=== PATIENT | female | born 1995 | race Caucasian/White ===

== ENCOUNTER 2021-05-08 13:41 | Emergency (ER) | payer MEDICAID ==
--- NOTE | 2021-05-08 13:55 | EDM.PDOC ---
ED HPI GENERAL MEDICAL PROBLEM - General Chief Complaint: Cardiovascular Problem Stated Complaint: CHEST PAIN Time Seen by Provider: 05/08/21 13:41 Source of Information: Reports: Patient History Limitations: Reports: No Limitations - History of Present Illness INITIAL COMMENTS - FREE TEXT/NARRATIVE: October, 25-year-old female, presents with chest wall discomfort that has been p resent since yesterday. She denies any recent illness. She was diagnosed with hyperthyroidism in the past months and is still undergoing further testing for that. She states that she is immunocompromised autoimmune diagnosis. She had Covid 19 last April 2020 and has since then received Michael [employer] Michael immunization she believes in October. She has had no symptoms of COVID-19 or concerns. She denies any other contributing factors with no recent illness no travel exposures. 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 Denies any bowel or bladder changes or in her daily function. Recently started propanolol again as she stated it been stopped secondary of her . States tachycardia has been since original diagnosis,2016. Feels that tachycardia was somewhat controlled with propanolol when taking it and that her headaches were slightly improved. Onset Date: 05/07/21 Duration: Day(s):, Constant Location: Reports: Chest Quality: Reports: Ache, Pressure Severity: Moderate Improves with: Reports: None Worsens with: Reports: Breathing, Movement Context: Reports: Activity Associated Symptoms: Reports: No Other Symptoms Bilateral Middle Chest Pain Score (Numeric/FACES): 5 - Related Data Allergies Allergy/AdvReac Type Severity Reaction Status Date / Time Penicillins Allergy Mild Rash Verified 05/08/21 13:43 Home Meds: Home Meds Escitalopram Oxalate [Lexapro] 5 mg PO DAILY 05/08/21 [History] Indomethacin 50 mg PO TID 10 Days #30 capsule 05/08/21 [Rx] LORazepam [Ativan] 0.5 mg PO ASDIRECTED PRN 05/08/21 [History] Propranolol [Inderal LA 24 Hr] 60 mg PO DAILY 05/08/21 [History] predniSONE 20 mg PO WITHBREAKFAST #17 tab 05/08/21 [Rx] Past Medical History HEENT History: Reports: Impaired Vision Cardiovascular History: Reports: None (tachycardia), Other (See Below) Respiratory History: Reports: Other (See Below) (pleurisy) Gastrointestinal History: Reports: None Genitourinary History: Reports: None REDYE HAND History: Reports: Musculoskeletal History: Reports: None Neurological History: Reports: None, Headaches, Chronic, Migraines Psychiatric History: Reports: ADD, Anxiety, Depression, Other (See Below) (Impulse control disorder trichotillomania) Endocrine/Metabolic History: Reports: Hyperthyroidism Hematologic History: Reports: None Dermatologic History: Reports: None, Other (See Below) - Past Imaging History Past Imaging History: Reports: Ultrasound, Xray Social & Family History - Family History Family Medical History: No Pertinent Family History ED ROS GENERAL - Review of Systems Review Of Systems: Comprehensive ROS is negative, except as noted in HPI. ED EXAM, GENERAL - Physical Exam Exam: See Below Free Text/Narrative:: Alert, oriented, in no acute distress. There is no cyanosis nor pallor noted. HEENT is negative discharge or deformity. PERRLA with EOM intact, there is no icterus nor injection. Neck is soft supple no lymphadenopathy no rigidity noted. No palpable mass appreciated. Thorax is clear throughout with no wheezes nor crackles. Cardiac is S1-S2 with no noted murmur. There is noted discomfort to deep inspiration as well as rotation of the thorax. Abdomen is soft bowel sounds are present no hepatosplenomegaly. There is no flank tenderness to percussion. No edema to the extremities. With AP compression with my hands across the upper 1/2 chest wall and the scapular region of her back limiting the depth of inspiration, she is able to breathe with no discomfort to the chest wall. Reassessment auscultation, I do not appreciate any significant rub during inspiration. #1 Interpretation EKG Date: 05/08/21 Time: 14:07 Rhythm: Other (sinus tachycardia) Rate (Beats/Min): 116 [place]: Normal P-Wave: Present QRS: Normal ST-T: Normal QT: Normal Comparison: Change From Previous EKG (Unable to view Banks but was not tachycardia at that time) Course - Vital Signs Last Recorded V/S: Last Vital Signs Temp 98.7 F 05/08/21 13:44 Pulse 112 H 05/08/21 15:00 Resp 20 05/08/21 15:00 BP 110/58 L 05/08/21 15:00 Pulse Ox 99 05/08/21 15:00 - Orders/Labs/Meds Orders: Active Orders 24 hr Category Date Time Status EKG 12 Lead [EK] Stat Ther 05/08/21 13:51 Ordered Labs: Laboratory Tests 05/08/21 05/08/21 05/08/21 Range/Units 14:15 14:15 14:45 WBC (5.00-10.00) 10^3/uL RBC (3.80-5.50) 10^6/uL Hgb (12.0-16.0) g/dL Hct (37.0-47.0) % MCV (82.0-92.0) fL MCH (27.0-31.0) pg MCHC (32.0-36.0) g/dL RDW (11.5-14.5) % Plt Count (150-400) 10^3/uL MPV (7.4-10.4) fL Immature Gran % (Auto) (0.0-5.0) % Neut % (Auto) (50.0-70.0) % Lymph % (Auto) (20.0-40.0) % [place] % (Auto) (2.0-8.0) % Eos % (Auto) (1.0-3.0) % Baso % (Auto) (0.0-1.0) % Neut # (Auto) (2.50-7.00) 10^3/uL Lymph # (Auto) (1.00-4.00) 10^3/uL [place] # (Auto) (0.10-0.80) 10^3/uL Eos # (Auto) (0.10-0.30) 10^3/uL Baso # (Auto) (0.00-0.10) 10^3/uL Immature Gran # (Auto) (0.00-0.50) 10^3/uL D-Dimer, Quantitative 135 (<400) ng/mL Sodium 139 (136-145) mmol/L Potassium 4.3 (3.5-5.1) mmol/L Chloride 102 (98-107) mmol/L Carbon Dioxide 25.5 (21.0-32.0) mmol/L Anion Gap 15.8 H (5-15) mmol/L BUN 11 (7-18) mg/dL Creatinine 0.51 (0.51-1.17) mg/dL Est Cr Clr Drug Dosing 155.11 mL/min Estimated GFR (MDRD) > 60 mL/min Glucose 112 (70-140) mg/dL Lactic Acid (0.4-2.0) mmol/L Calcium 8.6 L (8.7-10.3) mg/dL Total Bilirubin 0.2 (0.2-1.0) mg/dL AST 14 L (15-37) U/L ALT 26 (14-63) U/L Alkaline Phosphatase 68 (46-116) U/L Troponin I High Sens 5.600 (0-51.000) pg/mL C-Reactive Protein 1.9 H (0.0-0.9) mg/dL Total Protein 6.6 (6.4-8.2) g/dL Albumin 3.35 L (3.40-5.00) g/dL 05/08/21 05/08/21 Range/Units 14:45 14:45 WBC 4.09 L (5.00-10.00) 10^3/uL RBC 4.18 (3.80-5.50) 10^6/uL Hgb 11.8 L (12.0-16.0) g/dL Hct 35.1 L (37.0-47.0) % MCV 84.0 (82.0-92.0) fL MCH 28.2 (27.0-31.0) pg MCHC 33.6 (32.0-36.0) g/dL RDW 11.5 (11.5-14.5) % Plt Count 238 (150-400) 10^3/uL MPV 9.9 (7.4-10.4) fL Immature Gran % (Auto) 0.2 (0.0-5.0) % Neut % (Auto) 69.5 (50.0-70.0) % Lymph % (Auto) 12.0 L (20.0-40.0) % [place] % (Auto) 17.6 H (2.0-8.0) % Eos % (Auto) 0.5 L (1.0-3.0) % Baso % (Auto) 0.2 (0.0-1.0) % Neut # (Auto) 2.84 (2.50-7.00) 10^3/uL Lymph # (Auto) 0.49 L (1.00-4.00) 10^3/uL [place] # (Auto) 0.72 (0.10-0.80) 10^3/uL Eos # (Auto) 0.02 L (0.10-0.30) 10^3/uL Baso # (Auto) 0.01 (0.00-0.10) 10^3/uL Immature Gran # (Auto) 0.01 (0.00-0.50) 10^3/uL D-Dimer, Quantitative (<400) ng/mL Sodium (136-145) mmol/L Potassium (3.5-5.1) mmol/L Chloride (98-107) mmol/L Carbon Dioxide (21.0-32.0) mmol/L Anion Gap (5-15) mmol/L BUN (7-18) mg/dL Creatinine (0.51-1.17) mg/dL Est Cr Clr Drug Dosing mL/min Estimated GFR (MDRD) mL/min Glucose (70-140) mg/dL Lactic Acid 1.1 (0.4-2.0) mmol/L Calcium (8.7-10.3) mg/dL Total Bilirubin (0.2-1.0) mg/dL AST (15-37) U/L ALT (14-63) U/L Alkaline Phosphatase (46-116) U/L Troponin I High Sens (0-51.000) pg/mL C-Reactive Protein (0.0-0.9) mg/dL Total Protein (6.4-8.2) g/dL Albumin (3.40-5.00) g/dL Meds: Medications Discontinued Medications Generic Name Dose Route Start Last Admin Trade Name Freq PRN Reason Stop Dose Admin Ketorolac Tromethamine 60 mg 05/08/21 14:54 05/08/21 14:56 Ketorolac 60 Mg/2 Ml Sdv IM 05/08/21 14:55 60 mg ONETIME ONE Administration Departure - Departure Time of Disposition: 15:49 Disposition: Home, Self-Care 01 Condition: Good Clinical Impression: Elevated C-reactive protein (CRP), History of hyperthyroidism, Tachycardia with heart rate 100-120 beats per minute, Acute chest wall pain - Discharge Information *PRESCRIPTION DRUG MONITORING PROGRAM REVIEWED*: Not Applicable *COPY OF PRESCRIPTION DRUG MONITORING REPORT IN PATIENT GEE: Not Applicable Prescriptions: Indomethacin 50 mg PO TID 10 Days #30 capsule predniSONE 20 mg PO WITHBREAKFAST #17 tab Instructions: Chest Wall Pain, [id number], Pleurodynia Referrals: Yun Rehman MD [Physician] - Dominique Martinez NP [Ordering Only Provider] - Forms: ED Department Discharge Additional Instructions: Lab work shows no evidence of infection. Your chronic anemia is in your recent stable range at 11.8, the last two Banks readings were 11.6 and 12.4. Chest x-ray shows no pneumonia. Your CRP is slightly elevated which is an inflammation marker likely due to the pleuritic inflammation that is causing your pain. EKG is within normal limits other than mildly tachycardic. No evidence of infarct nor ischemia are present. Troponin is negative thus no cardiac involvement. Vyvanse and Adderall can also contribute to rapid heart rate. We will start prednisone for the inflammation as well as anti-inflammatory for your pain and inflammation. Continue your medications as directed. holding the Vyvanse the next few days to decrease tachycardia risks. Follow-up with your clinic in the next week for reassessment, sooner if not showing improvement. Sepsis Event Note (ED) - Evaluation Sepsis Screening Result: No Definite Risk - Focused Exam Vital Signs: Vital Signs Temp Pulse Resp BP Pulse Ox 05/08/21 15:00 112 H 20 110/58 L 99 05/08/21 14:45 113 H 20 108/59 L 99 05/08/21 14:30 127 H 19 114/55 L 93 L 05/08/21 14:15 115 H 20 106/63 100 05/08/21 14:00 114 H 22 H 114/55 L 100 05/08/21 13:45 120 H 17 112/53 L 99 05/08/21 13:44 98.7 F 116 H 20 112/53 L 100 - Problem List & Annotations (1) Acute chest wall pain SNOMED Code(s): 015437573, 761452080 Code(s): R07.89 - OTHER CHEST PAIN Status: Acute Current Visit: Yes (2) Tachycardia with heart rate 100-120 beats per minute SNOMED Code(s): 2682628 Code(s): R00.0 - TACHYCARDIA, UNSPECIFIED Status: Chronic Priority: Medium Current Visit: Yes (3) History of hyperthyroidism SNOMED Code(s): 806976667 Code(s): Z86.39 - PERSONAL HISTORY OF ENDO, NUTRITIONAL AND METABOLIC DISEASE Status: Acute Priority: Medium Current Visit: Yes (4) Elevated C-reactive protein (CRP) SNOMED Code(s): 249050575942340 Code(s): R79.82 - ELEVATED C-REACTIVE PROTEIN (CRP) Status: Acute Priority: High Current Visit: Yes (5) Pleurisy SNOMED Code(s): 892054424 Code(s): R09.1 - PLEURISY Status: Acute Priority: High Current Visit: Yes - Problem List Review Problem List Initiated/Reviewed/Updated: Yes - My Orders Last 24 Hours: My Active Orders 05/08/21 13:51 EKG 12 Lead [EK] Stat - Assessment/Plan Last 24 Hours: My Active Orders 05/08/21 13:51 EKG 12 Lead [EK] Stat Plan: Lab work shows no evidence of infection. Your chronic anemia is in your recent stable range at 11.8, the last two Banks readings were 11.6 and 12.4. Chest x-ray shows no pneumonia. Your CRP is slightly elevated which is an inflammation marker likely due to the pleuritic inflammation that is causing your pain. EKG is within normal limits other than mildly tachycardic. No evidence of infarct nor ischemia are present. Troponin is negative thus no cardiac involvement. Vyvanse and Adderall can also contribute to rapid heart rate. We will start prednisone for the inflammation as well as anti-inflammatory for your pain and inflammation. Continue your medications as directed. holding the Vyvanse the next few days to decrease tachycardia risks. Follow-up with your clinic in the next week for reassessment, sooner if not showing improvement.
[2021-05-08 14:43] LABS: ANION GAP 15.8 mmol/L (5-15); CHLORIDE,CL 102 mmol/L (98-107); SODIUM,NA 139 mmol/L (136-145)
[2021-05-08] MEDS: Ketorolac 60 MG/2 ML SDV IM ONE (14:56)
--- NOTE | 2021-05-08 16:15 | CR ---
[id number] RAD/RAD Chest PA And Lateral EXAM: RAD Chest PA And Lateral CLINICAL DATA: PLEURITIC CHEST PAIN COMPARISON: No previous similar exam is available. FINDINGS: The lungs are clear. Scoliosis is seen The cardiomediastinal contour is normal. The regional bones and soft tissues are unremarkable. IMPRESSION: NO ACUTE PROCESS. Benito Ruiz MD 05/08/21 [id number] Thank you for allowing us to participate in the care of your patient.
== END 2021-05-08 16:00 | disposition home or self-care (01) ==
LOC: KA.ED 13:41
DX: R07.89 Other chest pain (principal); R00.0 Tachycardia, unspecified; R79.82 Elevated C-reactive protein (CRP); E05.90 Thyrotoxicosis, unspecified without thyrotoxic crisis or storm; Z88.0 Allergy status to penicillin; Z79.899 Other long term (current) drug therapy
CPT/HCPCS: 36415; 71046; 80053; 83605; 84484; 85025; 85379; 86140; 96372; 99285; J1885; 93010; 99284